=== PATIENT | male | born 1950 | race Caucasian/White ===

== ENCOUNTER 2023-02-12 13:26 | Inpatient (IN) ==
[2023-02-12] MEDS ORDERED: Ondansetron 4 mg VIAL 2 MG/ML 2 ml VIAL IV PRN (14:28)
[2023-02-12] MEDS ORDERED: HYDROmorphone 0.5 MG/0.5 ML SYRINGE IV SLOW PU PRN (14:41)
[2023-02-12] MEDS ORDERED: Propofol 10 MG/ML 20 ML BTL ONE ×2 (15:09→15:13)
[2023-02-12] MEDS ORDERED: Midazolam 2 mg/2 ml VIAL 1 mg/ml 2 ml VIAL (2 mg) ONE ×3 (15:09→18:08)
[2023-02-12] MEDS ORDERED: Lidocaine 2% PF 5 ML VIAL ONE (15:09)
[2023-02-12] MEDS ORDERED: fentaNYL 100 mcg/2 ml 50 MCG/ML VIAL ONE ×2 (15:09→21:06)
[2023-02-12] MEDS ORDERED: Rocuronium 50 mg VIAL 10 mg/ml 5 ml VIAL (50 mg) ONE (15:13)
[2023-02-12] MEDS ORDERED: Acetaminophen IV 1 GM/100ML 1,000 MG/100 ML BAG IV ONE (15:13)
[2023-02-12] MEDS ORDERED: Labetalol IV 5 MG/ML 20 ml VIAL ONE ×2 (15:15→21:07)
[2023-02-12] MEDS ORDERED: Metoprolol Tartrate 5 mg VIAL 5 ml VIAL (1 mg/ml) ONE ×2 (15:37→20:09)
[2023-02-12] MEDS ORDERED: fentaNYL 250 mcg/5 ml 50 MCG/ML 5 ml VIAL (250 MCG) ONE (18:08)
[2023-02-12] MEDS ORDERED: ceFOXitin 2 GM IVPREMIX 2 GM/50 ML BAG ONE (18:33)
[2023-02-12] MEDS ORDERED: Bupivacaine 0.25% SDV 30 ML ONE (18:41)
[2023-02-12] MEDS ORDERED: Dextrose 50% Syringe 50 ml 25 GM/50 ML SYRINGE IV PUSH PRN (20:12)
[2023-02-12] MEDS ORDERED: Naloxone 0.4 mg VIAL 0.4 mg/ml 1 ml VIAL IV PRN (21:07)
[2023-02-12] MEDS ORDERED: Labetalol IV 5 MG/ML 20 ml VIAL IV PUSH ONE (21:08)
[2023-02-12] MEDS: fentaNYL 100 mcg/2 ml 50 MCG/ML VIAL IV PRN ×2 (21:10→21:18)
[2023-02-12] MEDS: Lactated Ringers 1000 ml BAG 1,000 ML IV SCH (22:44)
[2023-02-13 05:50] LABS: ABS Lymphocytes 0.9 10^3/uL (1.0-4.8); ABS Monocytes 0.2 10^3/uL (0.0-1.1); ABS Neutrophils 8.1 10^3/uL (1.5-7.6); Hematocrit 37.2 % (38-53); Hemoglobin 13.3 g/dL (13.2-16.3); Lymphocyte % 9.6 %; Mean Corpuscular Hgb Conc 35.7 g/dL (31-36); Mean Corpuscular Volume 98.1 fL (80-97); Mean Platelet Volume 7.4 fL (7.5-11.2); Platelet Count 179 10^3/uL (150-450); Red Blood Count 3.79 10^6/uL (4.06-5.63); Red Cell Distribution Width 12.4 % (12-17); White Blood Count 9.2 10^3/uL (3.6-10.2)
[2023-02-13 06:06] LABS: Calcium 9.5 mg/dL (8.6-10.3); Creatinine, Serum 0.84 mg/dL (0.67-1.17); Potassium 4.2 mmol/L (3.5-5.0); eGFR CKD-EPI 93.8 (>60)
[2023-02-13] MEDS: Lactated Ringers 1000 ml BAG 1,000 ML IV SCH (06:46)
[2023-02-13] MEDS: Enoxaparin 40 MG/0.4 ML SYR SUBCUT SCH (08:38)
[2023-02-14] MEDS: Enoxaparin 40 MG/0.4 ML SYR SUBCUT SCH (08:55)
[2023-02-14] MEDS ORDERED: Aspirin EC 81 mg TAB.EC (enteric coated) PO SCH (09:00)
[2023-02-14 10:13] VITALS: BP 160/95
== END 2023-02-14 11:43 | disposition home or self-care (01) | DRG 331 ==
LOC: ED 13:26 → EDHOLD 14:28 → AA 14:43 → SSU 22:38
PROVIDERS: ADMIT Surgery; ATTEND Surgery